=== PATIENT | female | born 1995 | race Caucasian/White ===

== ENCOUNTER 2024-07-22 18:31 | Outpatient (CLI) | payer OTHER ==
--- NOTE | 2024-07-22 21:41 | Ultrasound Report ---
PROCEDURE: Pelvic w/Transvaginal INDICATIONS: DYSMENORRHEA TECHNIQUE: Real-time scanning was performed of the pelvic organs, with image documentation. Additional endovagi nal scanning was necessary due to incomplete visualization of the adnexal and endometrial structures by transabdominal scanning. COMPARISON: None. FINDINGS: Uterus: Uterus is anteverted and normal in size at 8.1 x 3.4 x 5.2 cm. The myometrium is heterogene ous, no discrete uterine fibroids. The endometrium measures 13.6 mm in combined thickness. Possible polyp measures 9 x 7 mm in size is noted within endometrium without internal vascularity. No endomet rial fluid. Ovaries: The right ovary measures 2.9 x 1.9 x 3.1 cm, with a calculated ovarian volume of 8.8 cc. T he left ovary measures 3.4 x 2.1 x 3.4 cm, with a calculated ovarian volume of 12.4 cc. The ovaries have a normal sonographic appearance. Less than 12 follicles can be seen in each ovary. No adnexal masses are seen. No cystic lesions measuring greater than 3 cm. Other: No pathologic free abdominal or pelvic fluid. IMPRESSION: 1. Heterogeneous myometrium without discrete uterine fibroids. 2. Heterogeneous endometrium with possible subcentimeter polyp as above suggest [employer] correlation. 3. Normal-appearing bilateral ovaries. Reviewed by: Jorge Alberto Crowley MD on 07/22/2024 9:40 PM PDT Approved by: Jorge Alberto Crowley MD on 07/22/2024 9:40 PM PDT Station ID: [id number]
== END 2024-07-22 18:32 | disposition home or self-care (01) ==
LOC: DI 18:31
PROVIDERS: ATTEND Nurse Practitioner Family
DX: N94.6 Dysmenorrhea, unspecified (principal); N92.0 Excessive and frequent menstruation with regular cycle